=== PATIENT | female | born 1950 | race Caucasian/White ===

== ENCOUNTER 2017-08-29 12:53 | Emergency (ER) | payer MEDICARE, OTHER ==
[~2017-08-29] VITALS: Ht 165.1 cm; Wt 56.7 kg
[2017-08-29] MEDS ORDERED: MULTAQ400 MG PO (13:05)
[2017-08-29] MEDS ORDERED: CARTIA XT180 M1 PO (13:05)
[2017-08-29] MEDS ORDERED: REGLAN 10 MG TA10 MG PO (13:06)
[2017-08-29] MEDS ORDERED: CARAFATE 1 GM TA1 G1 PO (13:06)
[2017-08-29] MEDS ORDERED: NORCO 5-325 TA1 EACH PO (13:21)
[2017-08-29 13:55] VITALS: BP 118/61
== END 2017-08-29 13:56 | disposition home or self-care (01) ==
LOC: M.ERS 12:53
DX: S93.402A Sprain of unspecified ligament of left ankle, initial encounter (principal); K21.9 Gastro-esophageal reflux disease without esophagitis; I48.91 Unspecified atrial fibrillation; Z90.710 Acquired absence of both cervix and uterus; F17.210 Nicotine dependence, cigarettes, uncomplicated; Z88.5 Allergy status to narcotic agent; X58.XXXA Exposure to other specified factors, initial encounter; Y93.89 Activity, other specified; Y92.89 Other specified places as the place of occurrence of the external cause; Y99.8 Other external cause status